=== PATIENT | male | born 1955 | race Caucasian/White ===

== ENCOUNTER → 2017-03-28 | Outpatient (CLI) | payer BC ==
[~2017-03-28] MED LIST: ALL180 PO; ASCA500 PO; BNC/20125 PO; CEPH500C PO; CLB200 PO; FLX10 PO; GLUCOSAMINE PO; META1TAB22 PO; MULT-506 PO; OXYC-57 PO
== END | disposition home or self-care (01) ==
LOC: C.LAB 07:46
PROVIDERS: ATTEND Urology
DX: R97.20 Elevated prostate specific antigen [PSA] (principal)

== ENCOUNTER → 2017-04-28 | Outpatient (CLI) | payer BC ==
[2017-04-28 10:09] LABS: BLOOD UREA NITROGEN 12 mg/dl (7-18); BUN/CREATININE RATIO 12.8 (10-20); CREATININE 0.94 mg/dl (0.60-1.40)
== END | disposition home or self-care (01) ==
LOC: C.LAB 08:01
PROVIDERS: ATTEND Urology
DX: R97.20 Elevated prostate specific antigen [PSA] (principal)

== ENCOUNTER → 2017-05-09 | Outpatient (CLI) | payer BC ==
[~2017-05-09] MED LIST changes: +GADAVIST IV PRN
--- NOTE | 2017-05-09 11:03 | DIAGNOSTIC IMAGING REPORT ---
BONY ORBITS 3 VIEWS CLINICAL HISTORY: MRI clearance. FINDINGS: 3 views of the bony orbits are obtained. No prior studies are available for comparison at the time of dictation. There is no radiodense/metallic foreign body seen in the region of the bony orbits. The bony orbits are intact as imaged. The visualized paranasal sinuses and the mastoid air cells appear clear. The imaged calvarium appears intact. IMPRESSION: There is no radiodense/metallic foreign body seen in the region of the bony orbits. Electronically signed by: Rodolfo Yates M.D. 05/09/2017 11:02 AM Dictated Date/Time: 05/09/2017 11:01 AM
--- NOTE | 2017-05-09 13:46 | DIAGNOSTIC IMAGING REPORT ---
PROSTATE MRI COMBO CLINICAL HISTORY: 62-year-old male with elevated PSA of 4.72. TECHNIQUE: Multisequence, multiplanar MR imaging of the prostate was performed before and after the administration of intravenous contrast. Additional postprocessing was performed on a separate [id number] workstation by the radiologist for 3-D volumetric segmentation of the prostate and contouring of region(s) of interest (ABBIE) for targeting. Injection of 10 cc of Gadavist IV was uneventful. Post contrast imaging was performed utilizing dynamic enhancement. COMPARISON: None. FINDINGS: Prostate: The prostate measures 5.4 x 5.1 x 6.6 cm cm (DynaCAD prostate boundary segmentation volume 88.32 mL). Moderate changes of benign prostatic hyperplasia. Precontrast T1 weighted imaging demonstrates no evidence of intrinsic T1 hyperintensity to suggest hemorrhage. Seminal vesicles normal. Suspicious lesion(s) described below: Note is made of a 1.1 x 0.8 x 0.9 cm ill-defined T2 hypointense focus within the left posterior aspect of the transitional zone at the level of the prostate base. This demonstrates moderately diminished signal intensity on the ADC map with increased signal intensity on the diffusion-weighted sequence. This also demonstrates early enhancement with washout. No additional suspicious foci are identified within the prostate gland. No abnormalities are identified within the peripheral zone. Prostate indents the base of the bladder. Bladder: Normal. Bowel: Visualized portion of the rectum normal. Peritoneum: No free fluid in the pelvis. Lymph nodes: No lymphadenopathy in the visualized portion of the pelvis. Vasculature: Iliac vessels patent. Abdominal wall: Normal. Osseous structures: Normal bone marrow signal intensity. IMPRESSION: 1. 1.1 x 0.8 x 0.9 cm ill-defined T2 hypointense focus with restricted diffusion and diminished signal intensity on the ADC map within the left posterior aspect of the transitional zone at the level of the prostate base. This is suspicious for malignancy. PI-RADS: 4. Clinically significant cancer is likely to be present. This lesion has been segmented for targeted biopsy. 2. Marked benign prostatic hyperplasia. Electronically signed by: Conner Wilkins M.D. 05/09/2017 1:44 PM Dictated Date/Time: 05/09/2017 12:47 PM
== END | disposition home or self-care (01) ==
LOC: C.MRIBC 10:42
PROVIDERS: ATTEND Urology
DX: R97.20 Elevated prostate specific antigen [PSA] (principal)

== ENCOUNTER → 2017-06-27 | Outpatient (CLI) | payer OTHER ==
[~2017-06-27] MED LIST changes: -GADAVIST IV PRN
== END | disposition home or self-care (01) ==
LOC: C.LAB 07:50
PROVIDERS: ATTEND Urology
DX: R97.20 Elevated prostate specific antigen [PSA] (principal)

== ENCOUNTER → 2017-08-25 | Outpatient (CLI) | payer OTHER | END | disposition home or self-care (01) | LOC: C.LAB 07:19 | PROVIDERS: ATTEND Urology | DX: R97.20 Elevated prostate specific antigen [PSA] (principal) ==

== ENCOUNTER → 2017-09-10 | Outpatient (CLI) | payer OTHER | END | disposition home or self-care (01) | LOC: C.PATHSPEC 17:06 | PROVIDERS: ATTEND Urology | DX: R97.20 Elevated prostate specific antigen [PSA] (principal) ==

== ENCOUNTER 2018-06-29 12:32 | Inpatient (IN) ==
--- NOTE | 2018-06-29 13:48 | Emergency Department Note ---
History of Present Illness General Chief complaint: Calf Pain Stated complaint: L CALF SWOLLEN, DISCOLORATION, FEET COLD Time Seen by Provider: 06/29/18 13:25 History of Present Illness Maximum Pain Intensity: 5 This is a 63-year-old male that presents to the emergency department via private vehicle with complaints of "left calf swelling, discoloration, feet ". The patient notes that about 6 days ago he was out using his snowblower and notes that he slipped and fell striking the handle with the left anterior thigh. He notes that it became discolored, was black and blue in nature and then notes that he began with left calf edema, discoloration and pain. He also notes that he has been feeling fatigued and short of breath for the past 2.5 weeks. No chest pain. He is concerned because he is a smoker. He is also concerned he may have a blood clot in the left lower extremity. He denies any fevers or chills. He has been taking aspirin for the pain but it persists. Numerically he rates the pain in the left lower extremity as a 5/10. Home Medications Home Medications Medication Instructions Recorded Confirmed Type aspirin 0 mg PO QAM 06/29/18 06/29/18 History cyclobenzaprine 10 mg PO DAILY PRN 06/29/18 06/29/18 History naproxen 500 mg PO BID 06/29/18 06/29/18 History Allergies Allergy/AdvReac Type Severity Reaction Status Date / Time lisinopril Allergy Unknown Verified 06/29/18 15:07 Past Med/Surg History Medical History HTN (hypertension) Tobacco abuse Surgical History H/O vasectomy History of cataract surgery Hx of elbow surgery Hx of sinus surgery Hx of tonsillectomy Family History Other No significant family history Social History Current Living Situation: Spouse Other Information That Helps Us Care for You: No Feels Safe at Home: Yes Safety Concerns: Feels Safe At This Time Smoking Status: Current every day smoker Tobacco Type: cigarettes Cigarettes per Day: "It's none of their business" (thinks [employer] wants info) Do You Dip or Chew Tobacco: No Tobacco Cessation Education Requested by Patient: No Hx Alcohol Use: Yes Alcohol type: beer Hx Substance Use: No Beliefs That Will Affect Care: None Preferred Language: Citizen Of The [place] Communication Ability: Effective Retail Sales Teammate Required: No Review of Systems A total of 10 systems reviewed and were otherwise negative Physical Exam Vital Signs Vital Signs - 24 hr 06/29/18 12:41 06/29/18 13:50 06/29/18 14:01 Temperature 36.6 C Temperature Source Oral Sepsis Recent Fever Within 48 Hours No Sepsis New/Unexplained Change in Mental Status No Sepsis Action Taken by Nursing No Action Required Pulse Rate 103 H Pulse Rate [Left] 87 Pulse Rhythm Regular Pulse Rhythm [Left] Regular Pulse Strength [Left] Normal Respiratory Rate 18 18 Respiratory Effort / Characteristics Non-Labored Spontaneous Non-Labored Spontaneous Respiratory Depth Normal Respiratory Pattern Regular Blood Pressure 143/67 H Blood Pressure [Left Arm] 131/78 Blood Pressure Mean 92 Blood Pressure Mean [Left Arm] 95 Blood Pressure Position Sitting Blood Pressure Position [Left Arm] Lying Pulse Oximetry 99 94 Oxygen Delivery Method Room Air Room Air Room Air 06/29/18 16:30 06/29/18 16:56 Temperature Temperature Source Sepsis Recent Fever Within 48 Hours Sepsis New/Unexplained Change in Mental Status Sepsis Action Taken by Nursing Pulse Rate Pulse Rate [Left] 78 Pulse Rhythm Pulse Rhythm [Left] Regular Pulse Strength [Left] Normal Respiratory Rate 16 Respiratory Effort / Characteristics Non-Labored Spontaneous Non-Labored Respiratory Depth Normal Normal Respiratory Pattern Regular Regular Blood Pressure Blood Pressure [Left Arm] 132/79 Blood Pressure Mean Blood Pressure Mean [Left Arm] 96 Blood Pressure Position Blood Pressure Position [Left Arm] Lying Pulse Oximetry 95 Oxygen Delivery Method Room Air Room Air VITAL SIGNS - Vital signs and nursing notes were reviewed. Stable. Afebrile. Tachycardic upon arrival. GENERAL -63-year-old male appearing his stated age who is in no acute distress. Communicates well with provider and answers questions appropriately. SKIN -left calf is quite edematous compared to the right. Minimal pitting edema. Patient does have bruising noted to the anterior calf. No breaks in the integument. No bruising overlying the left thigh. HEAD - NC/AT. EYES - PERRL with EOMI bilaterally. Sclera anicteric. Palpebral conjunctiva pink and moist with no injection noted. EARS - No deformities of external structures noted on gross examination bilaterally. NOSE - Midline and without cyanosis. No epistaxis or purulent drainage noted. Septum midline without deviation or septal hematoma noted. MOUTH/OROPHARYNX - Without perioral cyanosis. Buccal mucosa pink and moist and without leukoplakia. Tongue midline with equal elevation of palate bilaterally. No tonsillar hypertrophy, erythema, or exudates noted. Fair dentition noted. NECK - Neck with FROM. Supple to palpation. No lymphadenopathy noted. No nuchal rigidity. LUNGS - Chest wall symmetric without accessory muscle use, intercostals retractions, or central cyanosis. Normal vesicular breath sounds CTA B/L. No wheezes, rales, or rhonchi appreciated. CARDIAC - RRR with S1/S2. No murmur, rubs, or gallops appreciated. ABDOMEN - Abdominal contour normal without pulsations or visible masses. BS normoactive all four quadrants. No tenderness, palpable masses, hepatosplenomegaly, or ascites noted. EXTREMITIES - No clubbing or peripheral cyanosis. No pretibial edema present. +5 /5 strength noted in UE/LE bilaterally. There is tenderness to palpation overlying the patient's left calf. He is able to plantarflex and dorsiflex at the location of the left foot/ankle. There is no evidence of arterial compromise noting within normal limit pulses in the left lower extremity. Comparatively, the left lower extremity is more edematous than the right. NEUROLOGIC - Cranial nerves II through XII grossly intact. Sensory intact to light touch throughout. PSYCH - A&Ox3 and cooperates fully with examiner. Pt is very pleasant and interacts well with examiner. Course Administered Medications Ioversol (Optiray 320 125ml) 108 ml IV ONCE PRN PRN Reason: Interaction Checking Stop: 07/03/18 15:23 Last Admin: 06/29/18 15:24 Dose: 108 ml Discontinued Medications Heparin Sodium (Porcine) (Heparin Sodium (Porcine)) Confirm Administered Dose 10 ,000 units .ROUTE .STK-MED ONE Stop: 06/29/18 16:00 Last Admin: 06/29/18 16:52 Dose: 6,000 units Heparin Sodium/Dextrose () 1 ea IV NOW STA; Protocol Stop: 06/29/18 15:46 Last Admin: 06/29/18 16:53 Dose: Not Given Heparin Sodium/Dextrose (Heparin Sodium/Dextrose) Confirm Administered Dose 25, 000 units IV .STK-MED ONE Stop: 06/29/18 15:59 Last Admin: 06/29/18 16:52 Dose: 32 ml Medical Decision Making Laboratory Data Result diagrams: 06/29/18 13:50 06/29/18 13:50 Lab Results 06/29/18 06/29/18 06/29/18 Range/Units 13:50 13:50 13:50 WBC 12.24 H (4.8-10.8) K/uL RBC 4.88 (4.7-6.1) M/uL Hgb 15.5 (14.0-18.0) g/dL Hct 44.4 (42-52) % MCV 91.0 (80-100) fL MCH 31.8 (25-34) pg MCHC 34.9 (32-36) g/dL RDW Std Deviation 41.0 (36.4-46.3) fL RDW Coeff of Rosanne 12.2 (11.5-14.5) % Plt Count 370 (130-400) K/uL MPV 10.1 (7.4-10.4) fL Immature Gran % (Auto) 0.6 % Neut % (Auto) 71.3 % Lymph % (Auto) 18.5 % Kent % (Auto) 6.5 % Eos % (Auto) 2.5 % Baso % (Auto) 0.6 % Immature Gran # (Auto) 0.07 H (0.00-0.02) K/uL Neut # (Auto) 8.74 H (1.4-6.5) K/uL Lymph # (Auto) 2.26 (1.2-3.4) K/uL Kent # (Auto) 0.79 H (0.11-0.59) K/uL Eos # (Auto) 0.31 (0-0.5) K/uL Baso # (Auto) 0.07 (0-0.2) K/uL PT 11.3 (9.0-12.0) Seconds INR 1.1 (0.9-1.1) APTT 25.4 (21.0-31.0) Seconds PTT Ratio 1.0 Sodium 137 (136-145) mmol/L Potassium 3.8 (3.5-5.1) mmol/L Chloride 103 (98-107) mmol/L Carbon Dioxide 27 (21-32) mmol/L Anion Gap 7.0 (3-11) BUN 13 (7-18) mg/dl Creatinine 0.92 (0.6-1.4) mg/dl Est Cr Clr Drug Dosing 101.0 ml/min Est GFR ( Amer) 101.5 Est GFR (Non-Af Amer) 87.6 BUN/Creatinine Ratio 14.2 (10-20) Glucose 97 (70-99) mg/dl Calcium 9.1 (8.5-10.1) mg/dl Total Bilirubin 0.5 (0.2-1) mg/dl AST 24 (15-37) U/L ALT 70 (12-78) U/L Alkaline Phosphatase 95 (45-117) U/L Troponin I < 0.015 (0-0.045) ng/ml Total Protein 7.7 (6.4-8.2) gm/dl Albumin 3.4 (3.4-5.0) gm/dl Globulin 4.3 H (2.5-4.0) gm/dl Albumin/Globulin Ratio 0.8 L (0.9-2) Urine Color Urine Appearance (Clear) Urine pH (4.5-7.5) Ur Specific Ryan (1.000-1.030) Urine Protein (Negative) Urine Glucose (UA) (Negative) Urine Ketones (Negative) Urine Blood (Negative) Urine Nitrite (Negative) Urine Bilirubin (Negative) Urine Urobilinogen (Negative) Ur Leukocyte Esterase (Negative) Urine WBC (Auto) (0-5) /hpf Urine RBC (Auto) (0-4) /hpf U Hyaline Cast (Auto) (0-5) /lpf U Epithel Cells (Auto) (0-5) /lpf Urine Bacteria (Auto) (Negative) 06/29/18 Range/Units 15:05 WBC (4.8-10.8) K/uL RBC (4.7-6.1) M/uL Hgb (14.0-18.0) g/dL Hct (42-52) % MCV (80-100) fL MCH (25-34) pg MCHC (32-36) g/dL RDW Std Deviation (36.4-46.3) fL RDW Coeff of Rosanne (11.5-14.5) % Plt Count (130-400) K/uL MPV (7.4-10.4) fL Immature Gran % (Auto) % Neut % (Auto) % Lymph % (Auto) % Kent % (Auto) % Eos % (Auto) % Baso % (Auto) % Immature Gran # (Auto) (0.00-0.02) K/uL Neut # (Auto) (1.4-6.5) K/uL Lymph # (Auto) (1.2-3.4) K/uL Kent # (Auto) (0.11-0.59) K/uL Eos # (Auto) (0-0.5) K/uL Baso # (Auto) (0-0.2) K/uL PT (9.0-12.0) Seconds INR (0.9-1.1) APTT (21.0-31.0) Seconds PTT Ratio Sodium (136-145) mmol/L Potassium (3.5-5.1) mmol/L Chloride (98-107) mmol/L Carbon Dioxide (21-32) mmol/L Anion Gap (3-11) BUN (7-18) mg/dl Creatinine (0.6-1.4) mg/dl Est Cr Clr Drug Dosing ml/min Est GFR ( Amer) Est GFR (Non-Af Amer) BUN/Creatinine Ratio (10-20) Glucose (70-99) mg/dl Calcium (8.5-10.1) mg/dl Total Bilirubin (0.2-1) mg/dl AST (15-37) U/L ALT (12-78) U/L Alkaline Phosphatase (45-117) U/L Troponin I (0-0.045) ng/ml Total Protein (6.4-8.2) gm/dl Albumin (3.4-5.0) gm/dl Globulin (2.5-4.0) gm/dl Albumin/Globulin Ratio (0.9-2) Urine Color Dark Yellow Urine Appearance Clear (Clear) Urine pH 5.5 (4.5-7.5) Ur Specific Ryan 1.029 (1.000-1.030) Urine Protein Negative (Negative) Urine Glucose (UA) Negative (Negative) Urine Ketones Trace H (Negative) Urine Blood Trace H (Negative) Urine Nitrite Negative (Negative) Urine Bilirubin Negative (Negative) Urine Urobilinogen Negative (Negative) Ur Leukocyte Esterase Negative (Negative) Urine WBC (Auto) 1-5 (0-5) /hpf Urine RBC (Auto) 10-30 H (0-4) /hpf U Hyaline Cast (Auto) 1-5 (0-5) /lpf U Epithel Cells (Auto) 0-5 (0-5) /lpf Urine Bacteria (Auto) Negative (Negative) Imaging Data Radiologist's Impression: LEFT LOWER EXTREMITY VENOUS DOPPLER HISTORY: L calf edema, pain COMPARISON STUDY: None. FINDINGS: The left common femoral vein and proximal superficial femoral vein are patent. There is occlusive thrombus involving the mid to distal left superficial femoral vein, popliteal vein, and calf vessels. IMPRESSION: Occlusive left lower extremity DVT as described above. Electronically signed by: Curt Hernández M.D. 06/29/2018 2:[address] angio chest PE protocol CT DOSE: 485.95 mGy.cm HISTORY: 63 years-old Male with Large DVT, dyspnea. Acute shortness of breath with DVT TECHNIQUE: Multiple CTA images of the chest were obtained after the intravenous administration of 108 ml Optiray 320. Coronal and sagittal MIPS were obtained from the axial data set and were submitted for review. All measurements were obtained according to NASCET criteria. A dose lowering technique was utilized adhering to the principles of ALARA. COMPARISON: Duplex venous Doppler study of same day. FINDINGS: CTA: Heart is normal in size without pericardial effusion. Thoracic aorta is normal in course and caliber with mild to moderate mixed plaque formation. No thoracic aortic aneurysm or dissection. Patency of the imaged great vessels. The pulmonary arterial tree is opacified to the level of the subsegmental branches. Multiple filling defects are noted involving segmental and subsegmental branches of all lobes bilaterally no evidence of associated right heart strain or central pulmonary emboli. CT CHEST: No dominant thyroid nodule. Mildly prominent right hilar and subcarinal lymph nodes are likely on a reactive basis. No pneumothorax or pleural effusion. Severe emphysema. Mild bilateral bronchial wall thickening suggestive of bronchitis. 9 mm nodule about the left lung base on image 162 series 4 abutting the fissure suggests a fissural lymph node. 5 mm solid nodule of the left lower lobe as seen on image 142 series 4. 3 mm solid nodule of the left lower lobe on image 94 series 4. Mild dependent subsegmental bibasilar atelectasis. 5 mm solid nodule of the right upper lung on image 211 series 4 suggests additional fissural lymph node. There is an indeterminate 6 mm solid nodule of the apical segment right upper lobe on image 248 series 4. Central airways appear to be patent. Contracted gallbladder. No acute process of the imaged upper abdomen. Soft tissues are unremarkable. The bones appear to be intact. Degenerative changes of the shoulders and spine. No suspicious bone lesions. IMPRESSION: 1. Extensive bilateral pulmonary emboli noted involving segment of the subsegmental branches of all lobes bilaterally. No central pulmonary emboli or evidence of right heart strain. 2. Severe emphysema. 3. Scattered solid pulmonary nodules of the bilateral lungs measure up to 6 mm within the right lung apex. Bilateral fissural lymph nodes are also present as above. Please refer to below summary of Fleischner criteria recommendations for follow- up of incidental CT nodules (Kwabena Aguilera, Guidelines for management of small pulmonary nodules detected on CT scans: A statement from the Fleischner Society , Radiology 237: [phone].) SOLID NODULES Multiple nodules size: <6 mm * Low risk patients: no routine follow-up * high risk patients: optional CT at 12 months Multiple nodules size: 6-8 mm * Low risk patients: follow-up at 3-6 months, then consider further follow-up at 18-24 months * high risk patients: follow-up at 3-6 months, then at 18-24 months if no change Multiple nodules size: >8 mm * Low risk patients: follow-up at 3-6 months, then consider further follow-up at 18-24 months * high risk patients: follow-up at 3-6 months, then at 18-24 months if no change Note: newly detected indeterminate nodule in persons 35 years of age or older. * Low risk patients: minimal or absent history of smoking and/or other known risk factors * high risk patients: history of smoking or of other known risk factors (e.g. first degree relative with lung cancer, or exposure to asbestos, radon, uranium) * if a nodule up to 8 mm is partly solid or is ground glass further follow-up is required after 24 months to exclude possible slow growing adenocarcinoma (BRYON ) The above report was generated using voice recognition software. It may contain grammatical, syntax or spelling errors. . Electronically signed by: John Velazco M.D. 06/29/2018 3:40 PM MDM Narrative Patient was seen and evaluated as above in room A2. Review was performed of nursing notes and vital signs. After obtaining a thorough history and physical examination the above work up was performed. He presents to us today with fatigue, and left lower extremity edema. He is nontoxic on exam but is slightly tachycardic. EKG at bedside reveals normal sinus rhythm, complete right bundle branch block noted. There is T wave inversion noted in leads III, V1. Ultrasound was positive for DVT. CT of the chest obtained and is positive for bilateral pulmonary emboli. Labs were obtained. CBC reveals leukocytosis of 12.24. No significant anemia. Coags normal. No evidence of kidney or liver failure. Troponin is negative. Urinalysis does not reveal infection. Given the patient's presentation and findings do believe that heparinization is warranted. This was discussed with the attending physician. It was recommended to provide him 6000 units bolus of heparin with drip. This was ordered. Prior to administration hyper coag panel was also drawn. Patient will be admitted for further evaluation and management. I discussed these findings and concern with the hospitalist. Please refer to further documentation regarding his stay. Case was discussed with the attending physician. IMPRESSION: Chest Pain In the evaluation and treatment of this patient, the following differential diagnoses were considered: NH, ASC, DVT, compartment syndrome, dysrhythmia, Angina, Mediastinitis, GERD, Esophagitis, PE, Pneumonia, Bronchitis, Costochondritis, Rib Fracture, Zoster, among others Impression & Plan Deep vein thrombosis of lower extremity, Pulmonary embolism, bilateral Critical Care Time I have personally spent greater than 60 minutes of critical care time in the direct management of this patient. This includes bedside care, interpretation of diagnostic studies, and testing, discussion with consultants, patient, , and other required patient management activities. This 60 minutes is in excess of all separately billable procedures. Discharge Plan Visit Data Chief Complaint: Calf Pain Stated Complaint: L CALF SWOLLEN, DISCOLORATION, FEET COLD ED Provider: Dererll Felix ED Midlevel Provider: Peyman Ardon Discharge Problem: Deep vein thrombosis of lower extremity, Pulmonary embolism, bilateral Patient Disposition: Admitted As Inpatient Condition: Good Forms Stand Alone Forms: My [facility] Prescriptions Prescriptions: No Action cyclobenzaprine 10 mg tablet 10 mg PO DAILY PRN (Reason: Muscle Spasm) RF: 0 aspirin 81 mg Tablet,Delayed Release (Dr/Ec) PO QAM RF: 0 naproxen 500 mg Tablet 500 mg PO BID RF: 0 Referrals Referrals: Charles Lua Jr, DO [Primary Care Provider] -
[2018-06-29 14:04] LABS: Basophils # (auto) 0.07 K/uL (0-0.2); Basophils % (auto) 0.6 %; Eosinophils # (auto) 0.31 K/uL (0-0.5); Eosinophils % (auto) 2.5 %; Hematocrit (blood only) 44.4 % (42-52); Hemoglobin 15.5 g/dL (14.0-18.0); Immature Granulocytes # (auto) 0.07 K/uL (0.00-0.02); Immature Granulocytes % (auto) 0.6 %; Lymphocytes # (auto) 2.26 K/uL (1.2-3.4); Lymphocytes % (auto) 18.5 %; Mean Corpuscular Hgb Conc 34.9 g/dL (32-36); Mean Platelet Volume 10.1 fL (7.4-10.4); Monocytes # (auto) 0.79 K/uL (0.11-0.59); Monocytes % (auto) 6.5 %; Neutrophils # (auto) 8.74 K/uL (1.4-6.5); Neutrophils % (auto) 71.3 %; Platelet Count 370 K/uL (130-400); RDW Coefficient of Variation 12.2 % (11.5-14.5); Red Blood Count 4.88 M/uL (4.7-6.1); White Blood Count 12.24 K/uL (4.8-10.8)
[2018-06-29 14:20] LABS: Alanine Aminotransferase 70 U/L (12-78); Albumin Level 3.4 gm/dl (3.4-5.0); Aspartate Aminotransferase 24 U/L (15-37); BUN Creatinine Ratio 14.2 (10-20); Blood Urea Nitrogen 13 mg/dl (7-18); Calcium 9.1 mg/dl (8.5-10.1); Carbon Dioxide 27 mmol/L (21-32); Chloride 103 mmol/L (98-107); Est GFR (African American) 101.5; Est GFR (Non-African American) 87.6; Glucose 97 mg/dl (70-99); Potassium 3.8 mmol/L (3.5-5.1); Sodium 137 mmol/L (136-145)
[2018-06-29 14:25] LABS: Albumin Globulin Ratio 0.8 (0.9-2); Alkaline Phosphatase 95 U/L (45-117); Bilirubin,Total 0.5 mg/dl (0.2-1); Globulin 4.3 gm/dl (2.5-4.0); Total Protein 7.7 gm/dl (6.4-8.2); Troponin I < 0.015 ng/ml (0-0.045)
[2018-06-29 14:26] LABS: INR 1.1 (0.9-1.1); Partial Thromboplastin Time 25.4 Seconds (21.0-31.0); Prothrombin Time 11.3 Seconds (9.0-12.0)
--- NOTE | 2018-06-29 14:51 | Ultrasound Report ---
LEFT LOWER EXTREMITY VENOUS DOPPLER HISTORY: L calf edema, pain COMPARISON STUDY: None. FINDINGS: The left common femoral vein and proximal superficial femoral vein are patent. There is occ lusive thrombus involving the mid to distal left superficial femoral vein, popliteal vein, and calf v essels. IMPRESSION: Occlusive left lower extremity DVT as described above. Electronically signed by: Curt Hernández M.D. 06/29/2018 2:49 PM
[2018-06-29 15:21] LABS: Appearance Urine Clear (Clear); Bacteria Urine Automated Negative (Negative); Bilirubin Urine Negative (Negative); Color Urine Dark Yellow; Epithelial Cell Urine Auto 0-5 /lpf (0-5); Glucose Urine UA Negative (Negative); Ketones Urine Trace (Negative); Leukocyte Esterase Urine Negative (Negative); Nitrite Urine Negative (Negative); Protein Urine Negative (Negative); Specific Gravity Urine 1.029 (1.000-1.030); Urobilinogen Urine Negative (Negative); pH Urine 5.5 (4.5-7.5)
[2018-06-29] MEDS ORDERED: OPTIRAY 320 125ml IV PRN (15:24)
--- NOTE | 2018-06-29 15:41 | CT Scan Report ---
CT angio chest PE protocol CT DOSE: 485.95 mGy.cm HISTORY: 63 years-old Male with Large DVT, dyspnea. Acute shortness of breath with DVT TECHNIQUE: Multiple CTA images of the chest were obtained after the intravenous administration of 108 ml Optiray 320. Coronal and sagittal MIPS were obtained from the axial data set and were submitted for review. All measurements were obtained according to NASCET criteria. A dose lowering technique w as utilized adhering to the principles of ALARA. COMPARISON: Duplex venous Doppler study of same day. FINDINGS: CTA: Heart is normal in size without pericardial effusion. Thoracic aorta is normal in course and caliber with mild to moderate mixed plaque formation. No thoracic aortic aneurysm or dissection. Patency of t he imaged great vessels. The pulmonary arterial tree is opacified to the level of the subsegmental br anches. Multiple filling defects are noted involving segmental and subsegmental branches of all lobes bilaterally no evidence of associated right heart strain or central pulmonary emboli. CT CHEST: No dominant thyroid nodule. Mildly prominent right hilar and subcarinal lymph nodes are likely on a r eactive basis. No pneumothorax or pleural effusion. Severe emphysema. Mild bilateral bronchial wall thickening sugge stive of bronchitis. 9 mm nodule about the left lung base on image 162 series 4 abutting the fissure suggests a fissural lymph node. 5 mm solid nodule of the left lower lobe as seen on image 142 series 4. 3 mm solid nodule of the left lower lobe on image 94 series 4. Mild dependent subsegmental bibasil ar atelectasis. 5 mm solid nodule of the right upper lung on image 211 series 4 suggests additional f issural lymph node. There is an indeterminate 6 mm solid nodule of the apical segment right upper lob e on image 248 series 4. Central airways appear to be patent. Contracted gallbladder. No acute process of the imaged upper abdomen. Soft tissues are unremarkable. The bones appear to be intact. Degenerative changes of the shoulders and spine. No suspicious bone le sions. IMPRESSION: 1. Extensive bilateral pulmonary emboli noted involving segment of the subsegmental branches of all l obes bilaterally. No central pulmonary emboli or evidence of right heart strain. 2. Severe emphysema. 3. Scattered solid pulmonary nodules of the bilateral lungs measure up to 6 mm within the right lung apex. Bilateral fissural lymph nodes are also present as above. Please refer to below summary of Fleischner criteria recommendations for follow-up of incidental CT n odules (Kwabena Aguilera, Guidelines for management of small pulmonary nodules detected on CT scans: A sta tement from the Fleischner Society, Radiology 237: [id number].) SOLID NODULES Multiple nodules size: <6 mm * Low risk patients: no routine follow-up * high risk patients: optional CT at 12 months Multiple nodules size: 6-8 mm * Low risk patients: follow-up at 3-6 months, then consider further follow-up at 18-24 months * high risk patients: follow-up at 3-6 months, then at 18-24 months if no change Multiple nodules size: >8 mm * Low risk patients: follow-up at 3-6 months, then consider further follow-up at 18-24 months * high risk patients: follow-up at 3-6 months, then at 18-24 months if no change Note: newly detected indeterminate nodule in persons 35 years of age or older. * Low risk patients: minimal or absent history of smoking and/or other known risk factors * high risk patients: history of smoking or of other known risk factors (e.g. first degree relative with lung cancer, or exposure to asbestos, radon, uranium) * if a nodule up to 8 mm is partly solid or is ground glass further follow-up is required after 24 m onths to exclude possible slow growing adenocarcinoma (BRYON) The above report was generated using voice recognition software. It may contain grammatical, syntax o r spelling errors. . Electronically signed by: John Velazco M.D. 06/29/2018 3:40 PM
[2018-06-29] MEDS ORDERED: HEPARIN 25000 UNIT/500 ML D5W IV ONE (15:58)
[2018-06-29] MEDS ORDERED: HEPARIN SOD 5,000 UNIT/0.5 ML VIAL ONE (15:59)
--- NOTE | 2018-06-29 17:18 | History & Physical Report ---
Date of Service June 29, 2018 Assessment & Plan (1) Deep vein thrombosis of lower extremity: left leg is tense and warm, started a few days ago never had this before doppler shows left leg DVT, occlusive only obvious risk factor is smoking no recent surgery or immobilization, very active [place] did admit to viral illness two weeks ago that made him less active? no family history of VTE treat with heparin drip, look into cost of Xarelto which patient would prefer over Coumadin hypercoagulable work up sent out (2) Pulmonary embolism, bilateral: patient has dyspnea on exertion and some mild tachycardia has a cough, non-productive CTA shows bilateral PE not hypoxic, vitals are stable treat with heparin drip convert to Xarelto tomorrow if vitals are stable and no hypoxia, could probably go home tomorrow afternoon on Xarelto check hypercoagulable work up since there are no clear risk factors this would be follow up lab work, drawn in the ED (3) Tobacco abuse: discussed quiting smoking, smokes about 1/2 ppd, more if he is drinking he is not interested in quitting at this time follow up with PCP (4) Dyspnea: due to PE, should resolve over time with treatment History of Present Illness Chief Complaint: I've lost my get up and go, feel terrible Primary Care Provider: Charles Lua Jr, DO 63 yo male with limited medical history, presents with acute onset of left leg swelling and pain three days ago. He said that he was using his snowblower almost a week ago and the handle hit him hard in the left thigh, gave him a big bruise. Says he normally does not bruise easily. After two days he noticed the bruise was improving but his left lower leg was swollen and warm and red. No history of this. The leg was painful as well. In addition to the leg symptoms, he had noticed that he was more short of breath on exertion. Says he always has a little shortness of breath due to his smoking. In hindsight, he says that he has been more short of breath the past two weeks. He thinks that maybe the DVT started earlier than a few days ago and that he has been slowly throwing pulmonary emboli. 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 He says that he had a viral illness two weeks ago, had fever and chills and generalized aches everywhere. Was not able to do much so perhaps that lead to the DVT. In the ED the venous doppler showed left leg DVT, occlussive. CTA chest shows bilateral PE. Allergies Allergy/AdvReac Type Severity Reaction Status Date / Time lisinopril Allergy Unknown Verified 06/29/18 15:07 Home Medications Home Medications Medication Instructions Recorded Confirmed Type aspirin 0 mg PO QAM 06/29/18 06/29/18 History cyclobenzaprine 10 mg PO DAILY PRN 06/29/18 06/29/18 History naproxen 500 mg PO BID 06/29/18 06/29/18 History Past Med/Surg History Medical History HTN (hypertension) Tobacco abuse Surgical History No pertinent past surgical history Family History Other No significant family history Social History Current Living Situation: Spouse Other Information That Helps Us Care for You: No Feels Safe at Home: Yes Safety Concerns: Feels Safe At This Time Smoking Status: Current every day smoker Tobacco Type: cigarettes Cigarettes per Day: "It's none of their business" (thinks [employer] wants info) Do You Dip or Chew Tobacco: No Tobacco Cessation Education Requested by Patient: No Hx Alcohol Use: Yes Alcohol type: beer Hx Substance Use: No Beliefs That Will Affect Care: None Preferred Language: Kazakh Communication Ability: Effective Stonemason Supervisor Required: No Review of Systems All systems reviewed & are unremarkable except as noted in HPI & below Physical Exam 2 Vital Signs (Past 24 Hours): Last Vital Signs Temp 36.6 C 06/29/18 12:41 Pulse 78 06/29/18 16:56 Resp 16 06/29/18 16:56 BP 132/79 06/29/18 16:56 Pulse Ox 95 06/29/18 16:56 Constitutional: WD/WN, vitals as above Eyes: PERRL, conjunctivae normal, anicteric sclerae ENMT: external ear and nose normal, oropharynx normal Neck: trachea midline, no thyromegaly Respiratory: normal respiratory effort, lungs clear to auscultation Cardiovascular: RRR, no murmur, no edema Gastrointestinal (Abdomen): normal bowel sounds, soft, nontender, no hepatosplenomegaly Musculoskeletal: no cyanosis or clubbing, extremities motor strength 5/5 Skin: no rashes, warm and dry Neurologic: patellar DTR's 2+ bilat, sensation intact and PERRL, EOMI, accommodation nl, no face palsy, no dysarthria Psychiatric: A+Ox3, euthymic affect Lymphatic: no cervical or axillary lymphadenopathy Results & Data Laboratory Results Laboratory Results - last 24 hr 06/29/18 06/29/18 06/29/18 13:50 13:50 13:50 WBC 12.24 H RBC 4.88 Hgb 15.5 Hct 44.4 MCV 91.0 MCH 31.8 MCHC 34.9 RDW Std Deviation 41.0 RDW Coeff of Rosanne 12.2 Plt Count 370 MPV 10.1 Immature Gran % (Auto) 0.6 Neut % (Auto) 71.3 Lymph % (Auto) 18.5 [place] % (Auto) 6.5 Eos % (Auto) 2.5 Baso % (Auto) 0.6 Immature Gran # (Auto) 0.07 H Neut # (Auto) 8.74 H Lymph # (Auto) 2.26 [place] # (Auto) 0.79 H Eos # (Auto) 0.31 Baso # (Auto) 0.07 PT 11.3 INR 1.1 APTT 25.4 PTT Ratio 1.0 Sodium 137 Potassium 3.8 Chloride 103 Carbon Dioxide 27 Anion Gap 7.0 BUN 13 Creatinine 0.92 Est Cr Clr Drug Dosing 101.0 Est GFR ( Amer) 101.5 Est GFR (Non-Af Amer) 87.6 BUN/Creatinine Ratio 14.2 Glucose 97 Calcium 9.1 Total Bilirubin 0.5 AST 24 ALT 70 Alkaline Phosphatase 95 Troponin I < 0.015 Total Protein 7.7 Albumin 3.4 Globulin 4.3 H Albumin/Globulin Ratio 0.8 L Urine Color Urine Appearance Urine pH Ur Specific [place] Urine Protein Urine Glucose (UA) Urine Ketones Urine Blood Urine Nitrite Urine Bilirubin Urine Urobilinogen Ur Leukocyte Esterase Urine WBC (Auto) Urine RBC (Auto) U Hyaline Cast (Auto) U Epithel Cells (Auto) Urine Bacteria (Auto) 06/29/18 15:05 WBC RBC Hgb Hct MCV MCH MCHC RDW Std Deviation RDW Coeff of Rosanne Plt Count MPV Immature Gran % (Auto) Neut % (Auto) Lymph % (Auto) [place] % (Auto) Eos % (Auto) Baso % (Auto) Immature Gran # (Auto) Neut # (Auto) Lymph # (Auto) [place] # (Auto) Eos # (Auto) Baso # (Auto) PT INR APTT PTT Ratio Sodium Potassium Chloride Carbon Dioxide Anion Gap BUN Creatinine Est Cr Clr Drug Dosing Est GFR ( Amer) Est GFR (Non-Af Amer) BUN/Creatinine Ratio Glucose Calcium Total Bilirubin AST ALT Alkaline Phosphatase Troponin I Total Protein Albumin Globulin Albumin/Globulin Ratio Urine Color Dark Yellow Urine Appearance Clear Urine pH 5.5 Ur Specific [place] 1.029 Urine Protein Negative Urine Glucose (UA) Negative Urine Ketones Trace H Urine Blood Trace H Urine Nitrite Negative Urine Bilirubin Negative Urine Urobilinogen Negative Ur Leukocyte Esterase Negative Urine WBC (Auto) 1-5 Urine RBC (Auto) 10-30 H U Hyaline Cast (Auto) 1-5 U Epithel Cells (Auto) 0-5 Urine Bacteria (Auto) Negative Diagnostic Findings CTA chest IMPRESSION: 1. Extensive bilateral pulmonary emboli noted involving segment of the subsegmental branches of all lobes bilaterally. No central pulmonary emboli or evidence of right heart strain. 2. Severe emphysema. 3. Scattered solid pulmonary nodules of the bilateral lungs measure up to 6 mm within the right lung apex. Bilateral fissural lymph nodes are also present as above. LEFT LOWER EXTREMITY VENOUS DOPPLER HISTORY: L calf edema, pain COMPARISON STUDY: None. FINDINGS: The left common femoral vein and proximal superficial femoral vein are patent. There is occlusive thrombus involving the mid to distal left superficial femoral vein, popliteal vein, and calf vessels. IMPRESSION: Occlusive left lower extremity DVT as described above. Medications Administered Current Inpatient Medications Ioversol (Optiray 320 125ml) 108 ml IV ONCE PRN PRN Reason: Interaction Checking Stop: 07/03/18 15:23 Last Admin: 06/29/18 15:24 Dose: 108 ml Code Status & VTE Plan Code Status full code VTE Prophylaxis Plan VTE Prophylaxis will be ordered: Yes _ (1) Deep vein thrombosis of lower extremity Affected thrombotic vein of extremity: Chronicity: Laterality:
[2018-06-29] MEDS ORDERED: CYCLOBENZAPRINE HCL 10 MG TAB PO PRN ×2 (18:22→18:31)
[2018-06-29] MEDS ORDERED: Heparin IV Standard *NO* Bolus IV ONE (18:22)
[2018-06-29] MEDS ORDERED: ONDANSETRON INJ 2 MG/ML 2 ML VIAL IV PRN ×2 (18:22→18:31)
[2018-06-29] MEDS ORDERED: POLYETHYLENE (MIRALAX) 17 GM PACK PO PRN ×2 (18:22→18:31)
[2018-06-29] MEDS ORDERED: ACETAMINOPHEN 325 MG TAB PO PRN ×2 (18:22→18:31)
[2018-06-29] MEDS ORDERED: Heparin IV Standard *NO* Bolus IV SCH (19:50)
[2018-06-29] MEDS ORDERED: HEPARIN STANDARD DEXTROSE 25,000 UNITS/500 ML IV SCH (22:20)
[2018-06-29 23:05] LABS: Partial Thromboplastin Ratio 1.5; Partial Thromboplastin Time 38.5 Seconds (21.0-31.0)
[2018-06-30] MEDS ORDERED: HEPARIN IV BOLUS 7,000 UNITS in SYRINGE 0 ML IV ONE (00:15)
[2018-06-30 06:56] LABS: Partial Thromboplastin Ratio 2.7
[2018-06-30 07:01] LABS: Partial Thromboplastin Time 69.6 Seconds (21.0-31.0)
[2018-06-30] MEDS ORDERED: ASPIRIN 81 MG ECTAB PO SCH ×2 (09:00)
[2018-06-30] MEDS ORDERED: RIVAROXABAN 15 MG TAB PO SCH ×2 (09:00)
[2018-06-30 09:04] LABS: Hematocrit (blood only) 39.5 % (42-52); Hemoglobin 13.5 g/dL (14.0-18.0); Mean Corpuscular Hgb Conc 34.2 g/dL (32-36); Mean Corpuscular Volume 90.8 fL (80-100); Mean Platelet Volume 10.2 fL (7.4-10.4); Platelet Count 351 K/uL (130-400); RDW Coefficient of Variation 12.2 % (11.5-14.5); RDW Standard Deviation 40.8 fL (36.4-46.3); Red Blood Count 4.35 M/uL (4.7-6.1); White Blood Count 11.24 K/uL (4.8-10.8)
[2018-06-30] MEDS ORDERED: RIVAROXABAN 15 MG TAB PO ONE (12:03)
--- NOTE | 2018-06-30 19:24 | Discharge Summary ---
Date of Service June 30, 2018 Admission HPI Per Admitting Provider 63 yo male with limited medical history, presents with acute onset of left leg swelling and pain three days ago. He said that he was using his snowblower almost a week ago and the handle hit him hard in the left thigh, gave him a big bruise. Says he normally does not bruise easily. After two days he noticed the bruise was improving but his left lower leg was swollen and warm and red. No history of this. The leg was painful as well. In addition to the leg symptoms, he had noticed that he was more short of breath on exertion. Says he always has a little shortness of breath due to his smoking. In hindsight, he says that he has been more short of breath the past two weeks. He thinks that maybe the DVT started earlier than a few days ago and that he has been slowly throwing pulmonary emboli. 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 He says that he had a viral illness two weeks ago, had fever and chills and generalized aches everywhere. Was not able to do much so perhaps that lead to the DVT. In the ED the venous doppler showed left leg DVT, occlussive. CTA chest shows bilateral PE. Principal Diagnosis LLE DVT and B/L PE Discharge Exam Constitutional WD/WN, vitals as above Eyes + anicteric sclerae Neck trachea midline Respiratory normal respiratory effort, lungs clear to auscultation Cardiovascular RRR, no murmur, no edema Gastrointestinal (Abdomen) Inspection/Auscultation: normal bowel sounds Percussion/Palpation: abdomen soft; abdomen nontender Musculoskeletal some mild chronic venous stasis changes of b/l shins; maybe slightly edematous in L calf compared to R but minimal; no redness or warmth Skin no rashes, warm and dry Neurologic moves all extremities Psychiatric A+Ox3, euthymic affect Discharge Data Allergies Allergy/AdvReac Type Severity Reaction Status Date / Time lisinopril Allergy Unknown Verified 06/29/18 15:07 Consultations 06/29/18 15:45 ED Decision to Admit Stat 06/29/18 15:52 ED Decision to Admit Stat Ordered Studies CT angio chest PE protocol FINDINGS: CTA: Heart is normal in size without pericardial effusion. Thoracic aorta is normal in course and caliber with mild to moderate mixed plaque formation. No thoracic aortic aneurysm or dissection. Patency of the imaged great vessels. The pulmonary arterial tree is opacified to the level of the subsegmental branches. Multiple filling defects are noted involving segmental and subsegmental branches of all lobes bilaterally no evidence of associated right heart strain or central pulmonary emboli. CT CHEST: No dominant thyroid nodule. Mildly prominent right hilar and subcarinal lymph nodes are likely on a reactive basis. No pneumothorax or pleural effusion. Severe emphysema. Mild bilateral bronchial wall thickening suggestive of bronchitis. 9 mm nodule about the left lung base on image 162 series 4 abutting the fissure suggests a fissural lymph node. 5 mm solid nodule of the left lower lobe as seen on image 142 series 4. 3 mm solid nodule of the left lower lobe on image 94 series 4. Mild dependent subsegmental bibasilar atelectasis. 5 mm solid nodule of the right upper lung on image 211 series 4 suggests additional fissural lymph node. There is an indeterminate 6 mm solid nodule of the apical segment right upper lobe on image 248 series 4. Central airways appear to be patent. Contracted gallbladder. No acute process of the imaged upper abdomen. Soft tissues are unremarkable. The bones appear to be intact. Degenerative changes of the shoulders and spine. No suspicious bone lesions. IMPRESSION: 1. Extensive bilateral pulmonary emboli noted involving segment of the subsegmental branches of all lobes bilaterally. No central pulmonary emboli or evidence of right heart strain. 2. Severe emphysema. 3. Scattered solid pulmonary nodules of the bilateral lungs measure up to 6 mm within the right lung apex. Bilateral fissural lymph nodes are also present as above. Please refer to below summary of Fleischner criteria recommendations for follow- up of incidental CT nodules (Kwabena Aguilera, Guidelines for management of small pulmonary nodules detected on CT scans: A statement from the Fleischner Society , Radiology 237: [id number].) SOLID NODULES Multiple nodules size: <6 mm * Low risk patients: no routine follow-up * high risk patients: optional CT at 12 months Multiple nodules size: 6-8 mm * Low risk patients: follow-up at 3-6 months, then consider further follow-up at 18-24 months * high risk patients: follow-up at 3-6 months, then at 18-24 months if no change Multiple nodules size: >8 mm * Low risk patients: follow-up at 3-6 months, then consider further follow-up at 18-24 months * high risk patients: follow-up at 3-6 months, then at 18-24 months if no change Note: newly detected indeterminate nodule in persons 35 years of age or older. * Low risk patients: minimal or absent history of smoking and/or other known risk factors * high risk patients: history of smoking or of other known risk factors (e.g. first degree relative with lung cancer, or exposure to asbestos, radon, uranium) * if a nodule up to 8 mm is partly solid or is ground glass further follow-up is required after 24 months to exclude possible slow growing adenocarcinoma (BRYON ) LEFT LOWER EXTREMITY VENOUS DOPPLER FINDINGS: The left common femoral vein and proximal superficial femoral vein are patent. There is occlusive thrombus involving the mid to distal left superficial femoral vein, popliteal vein, and calf vessels. IMPRESSION: Occlusive left lower extremity DVT as described above. Hospital Course (1) Deep vein thrombosis of lower extremity: - LLE less tense and maybe just slightly edematous compared to RLE; pt reports the pain is improved but slightly sore - He does endorse frequent injuries from hunting/construction but more soft tissue type injuries so maybe contributing to cause of DVT? No clear cut etiology but he is a smoker - Hypercoagulable work-up is pending - Initially placed on heparin gtt and converted to Xarelto 15 mg BID x 21 days and Rx provided. Rx card given for co-pay coverage. Will need additional scripts for ongoing therapy - Its hard to say what the provoking cause was but if hypercoaguable work-up is negative could consider 3-6 months for duration of treatment - Did discuss to monitor for signs of bleeding as he does take a baby aspirin as well. Recommended using Tylenol if possible as he does intermittently use Naproxen for chronic pains (2) Pulmonary embolism, bilateral: - Reports mild RODRIGEZ but is an active smoker so some could be multifactorial - Appropriate oxygenation on RA and no chest pain or cardiac/respiratory compromise - Treatment as above (3) Tobacco abuse: - Continued to recommend cessation; smokes approx 1/2 ppd but more if he is drinking Total Time Total Time Spent Total Time Spent (In Minutes): Greater than 30 minutes Discharge Plan Discharge Items Patient Disposition: Home - Self-Care Reason For Visit: LEFT LEG DVT, PULMONARY EMBOLISM Discharge Diagnosis: Left Leg Blood Clot and Blood Clots in the Lungs Condition: Good Discharge Goals: Decrease discomfort, Increase independence and Prevent disease Activity: Resume your previous activity Non-emergency contact: Primary Care Provider Call non-emergency contact if: you have any medication questions, your pain is worsening and your temperature is above 101 Follow-up/Referrals: Charles Lua Jr, DO [Primary Care Provider] - 07/03/18 11:00 am (Please, follow up with Dr. Lua on FridayJuly 03 at 11:00 am. *If you need to change this appointment, call the office at [phone].) Diet: Regular Addtl Provider Instructions: Blood Clot in Leg and Blood Clot in Lungs: - This could have possibly been caused by your multiple injuries to your legs but its not completely clear as a cause to your blood clots. You did have some send out labs to check for some markers for being at risk for blood clots called a hypercoaguable work-up. These results will go to your family doctor. - You will be on Xarelto 15 mg twice a day for 21 days. Then you will only be on 20 mg daily. You may need to be on this for about 3-6 months pending your blood tests for clotting issues. Please discuss this with your family doctor as well. - Be mindful of increased bruising and bleeding while on a blood thinner. If you get a cut make sure to apply firm pressure for at least 5 minutes as your blood still clots but can take a little longer. If you can't get bleeding to stop please call 911 - You may resume your aspirin therapy but would recommend using Tylenol for pain control if able or only sporadic use of NSAIDs (advil, ibuprofen, motrin, naproxen) as these can cause increased bleeding risk - Recommend to be mindful that you can get winded or short of breath with exertion so take rests as needed and each day should be better. If you have increased shortness of breath or chest pain please call 911. It is uncommon but you can still get blood clots while on a blood thinner (again not common) Prescriptions: New rivaroxaban [Xarelto] 15 mg tablet 15 mg PO BID 21 Days Qty: 42 RF: 0 Continue cyclobenzaprine 10 mg tablet 10 mg PO DAILY PRN (Reason: Muscle Spasm) RF: 0 aspirin 81 mg Tablet,Delayed Release (Dr/Ec) PO QAM RF: 0 naproxen 500 mg Tablet 500 mg PO BID RF: 0 Stand-Alone Forms: [facility] Discharge Orders: Discharge Order (Routine); Ordered 06/30/18 Ordered By: Michelle Vargas Admission Data Admit Date/Time: 06/29/18 16:59 Attending Provider: Antoni Dove Admit Provider: Antoni Dove Primary Care Provider: Charles Lua Jr Other Providers: Antoni Dove Service: Medical Other Interventions: Discharge Summary Assessment (RN) Last Done: 06/30/18 13:25 Pending Studies at Discharge: Yes (Hypercoaguble work-up) DC Date/Time DO NOT enter until pt leaves facility: 06/30/18 14:07
[2018-07-04 04:06] LABS: Anti Cardiolipin Ab IgG <14 GPL (< = 14); Anti Cardiolipin Ab IgM <12 MPL (< = 12); Anti-Thrombin III Activity 60 % activity (80-120); B2 Glycoprotein IgA <9 SAU (<=20); B2 Glycoprotein IgG <9 SGU (<=20); B2 Glycoprotein IgM <9 SMU (<=20); Lupus Anticoagulant Weak Positive (Negative); Protein S Functional(Activity) 94 % (70-150)
== END 2018-06-30 14:07 | disposition home or self-care (01) | DRG 299 ==
LOC: ED 12:32 → 4W 16:23

== ENCOUNTER 2022-08-26 21:35 | Observation (INO) ==
[2022-08-26 23:53] LABS: Basophils # (auto) 0.08 K/uL (0-0.2); Basophils % (auto) 0.5 %; Eosinophils # (auto) 0.51 K/uL (0-0.50); Eosinophils % (auto) 3.4 %; Hematocrit (blood only) 43.5 % (42.0-52.0); Hemoglobin 15.8 g/dl (14.0-18.0); Immature Granulocytes # (auto) 0.04 K/uL (0.01-0.20); Immature Granulocytes % (auto) 0.3 %; Lymphocytes # (auto) 3.34 K/uL (1.2-3.4); Lymphocytes % (auto) 22.5 %; Mean Corpuscular Hemoglobin 32.5 pg (25.0-34.0); Mean Corpuscular Hgb Conc 36.3 g/dL (32.0-36.0); Mean Corpuscular Volume 89.5 fL (80.0-100.0); Mean Platelet Volume 10.2 fL (9.4-12.4); Monocytes # (auto) 0.76 K/uL (0.11-0.59); Monocytes % (auto) 5.1 %; Neutrophils # (auto) 10.11 K/uL (1.40-6.50); Neutrophils % (auto) 68.2 %; Platelet Count 246 K/uL (130-400); RDW Coefficient of Variation 12.2 % (11.5-14.5); RDW Standard Deviation 39.9 fL (36.4-46.3); Red Blood Count 4.86 M/uL (4.70-6.10); White Blood Count 14.84 K/ul (4.8-10.8)
[2022-08-27 00:01] LABS: Albumin Globulin Ratio 1.7 (0.9-2); Albumin Level 4.1 gm/dl (3.4-5.0); BUN Creatinine Ratio 22.7 (10-20); Bilirubin,Total 0.5 mg/dl (0.2-1.0); Calcium 9.5 mg/dl (8.6-10.3); Creatinine Clr Calc Pharmacy 117.7 ml/min; Est GFR (African American) 109.2 ml/min; Est GFR (Non-African American) 94.3 ml/min; Globulin 2.4 gm/dl (2.5-4.0); Potassium 4.2 mmol/L (3.5-5.1); Total Protein 6.5 gm/dl (6.0-8.3)
[2022-08-27] MEDS ORDERED: diphenhydrAMINE 50 MG/ML VIAL IV STA (01:28)
[2022-08-27] MEDS ORDERED: cefTRIAXone SODIUM 2,000 MG/70 ML BAG IV STA (01:28)
--- NOTE | 2022-08-27 02:00 | History & Physical Report ---
Date of Service August 27, 2022 Assessment & Plan (1) Cellulitis of left leg: Plan: 67yo male with bullous lesion of LLE, progressive over the last several hours. ?dermatitis ?bullous impetigo? Patient is afebrile, HD stable and non-toxic in appearance. No pain with palpation of the left foot. No clear evidence for rapid progression -Observation to medical -Vancomycin -Topical mupirocin -Monitor for progression (2) Depression with anxiety: Plan: Chronic. Stable -Continue escitalopram F/E/N - Heplock. Electrolytes WNL. Regular diet as tolerated Ppx - low risk for VTE Code - DNR/DNI per discussion with patient Dispo - Observation to medical History of Present Illness Chief Complaint: Left foot blisters Primary Care Provider: DO Dawit Rutledgelucrecia is a 67yo male with history of HTN, prior LLE VTE presenting with swelling and blisters of his left foot. Patient developed itching of the dorsum of his left foot and toes on 08/26/22 AM. He scratched the area extensively then covered it with Cortisone 10 cream, put on his socks and shoes and went about his day. Around 19:00 he took off his socks and shoes and noted that his sock was soaked with serous fluid and he had extensive fluid filled lesions on his left foot. He reports the foot and ankle feeling swollen and "fat" but he has minimal pain. He reports that new blisters have formed on the foot even since earlier this evening. He denies fever, chills, cough, chest pain, SOB. Denies bug bites to the foot, scratches or other known abrasions or trauma. No new socks/boots/detergents or personal care products were applied to the area. Patient reports he never walks around barefoot. He does report having two tick bites on his right leg several days ago. He removed the ticks and reports that they were engorged. He has not developed rash or bulls eye. In the ER he is afebrile, HD stable, NAD ER Course: Ceftriaxone Allergies Allergy/AdvReac Type Severity Reaction Status Date / Time lisinopril Allergy Unknown Verified 03/08/20 13:41 Home Medications Medication Instructions Recorded Confirmed Type cyclobenzaprine 10 mg tablet 10 mg PO DAILY PRN Muscle Spasm 06/29/18 03/08/20 History naproxen 500 mg tablet 500 mg PO BID 06/29/18 03/08/20 History aspirin 81 mg tablet,delayed 81 mg PO QAM 07/12/19 03/08/20 History release escitalopram oxalate 10 mg tablet 10 mg PO DAILY 07/16/19 03/08/20 History (Lexapro) rosuvastatin 10 mg tablet (Crestor) 10 mg PO DAILY 07/16/19 03/08/20 History mecobalamin (vitamin B12) 5,000 5,000 mcg PO DAILY 10/25/19 03/08/20 History mcg disintegrating tablet vitamin B complex 1 tab PO DAILY 10/25/19 03/08/20 History Past Med/Surg History Medical History Delusion Depression with anxiety HTN (hypertension) Multiple head injury Tobacco abuse Surgical History H/O vasectomy History of cataract surgery Hx of elbow surgery Hx of sinus surgery Hx of tonsillectomy Family History Father Diabetes Normal pressure hydrocephalus Other No significant family history Social History Smoking Status: Current every day smoker Tobacco Type: Cigarettes Hx Alcohol Use: Yes Alcohol type: beer Hx Substance Use: No Preferred Language: Zambian Communication Ability: Effective Motion Picture Director Required: No Beliefs That Will Affect Care: None Current Living Situation: Spouse Feels Safe at Home: Yes Assistive Devices: None Review of Systems Review of Systems: All systems reviewed & are unremarkable except as noted in HPI & below Physical Exam Physical Exam: General: patient resting comfortably, NAD, non-toxic in appearance, AA&O x 4 HEENT: NC/AT, PERRL, EOMI, anicteric sclera, conjunctiva without injection, external ear normal to inspection and nontender, nares patent, moist mucus membranes, dentition intact, no oropharyngeal lesions, neck supple, trachea midline, no LAD, no thyromegaly, no JVD Heart: +S1/S2, regular, no m/r/g Lungs: equal air entry bilaterally, no rales/rhonchi/wheezes Abd: +BS, soft, NT/ND, no masses/organomegaly/ascites Ext: warm, 2+ pulses in UE/LE bilaterally, no clubbing/cyanosis Neuro: nonfocal, patient AA&O x 4, speech intact, no facial droop, moving all extremities on command with equal strength 5/5 Left foot - large fluid filled blisters, bullous lesions covering the dorsal surface of toes. Serous drainage. Mild erythema of the foot. Mild swelling of left ankle. Full ROM Small area of eschar at right popliteal fossa and lateral leg from patient's recent tick removal. Minor erythema surrounding eschar, no bulls eye rash appearance. No lymphangitis. Results & Data Results & Data Vital Signs (Past 12 Hours) Vital Signs Temp Pulse Resp BP Pulse Ox O2 Del Method 08/26/22 21:41 36.2 C L 84 20 110/72 94 Room Air Laboratory Results Laboratory Results WBC 14.84 K/ul (4.8-10.8) H 08/26/22: RBC 4.86 M/uL (4.70-6.10) 08/26/22: Hgb 15.8 g/dl (14.0-18.0) 08/26/22: Hct 43.5 % (42.0-52.0) 08/26/22: MCV 89.5 fL (80.0-100.0) 08/26/22: MCH 32.5 pg (25.0-34.0) 08/26/22: MCHC 36.3 g/dL (32.0-36.0) H 08/26/22: RDW Std Deviation 39.9 fL (36.4-46.3) 08/26/22: RDW Coeff of Rosanne 12.2 % (11.5-14.5) 08/26/22: Plt Count 246 K/uL (130-400) 08/26/22: MPV 10.2 fL (9.4-12.4) 08/26/22: Immature Gran % (Auto) 0.3 % 08/26/22: Neut % (Auto) 68.2 % 08/26/22: Lymph % (Auto) 22.5 % 04/17/23 23:22 Barnes % (Auto) 5.1 % 08/26/22 23:22 Eos % (Auto) 3.4 % 08/26/22 23:22 Baso % (Auto) 0.5 % 08/26/22 23:22 Neut # (Auto) 10.11 K/uL (1.40-6.50) H 08/26/22 23:22 Lymph # (Auto) 3.34 K/uL (1.2-3.4) 08/26/22 23:22 Barnes # (Auto) 0.76 K/uL (0.11-0.59) H 08/26/22 23:22 Eos # (Auto) 0.51 K/uL (0-0.50) H 08/26/22 23:22 Baso # (Auto) 0.08 K/uL (0-0.2) 08/26/22 23: Immature Gran # (Auto) 0.04 K/uL (0.01-0.20) 08/26/22 23:22 Sodium 136 mmol/L (136-145) 08/26/22 23:22 Potassium 4.2 mmol/L (3.5-5.1) 08/26/22 23:22 Chloride 109 mmol/L (98-107) H 08/26/22 23:22 Carbon Dioxide 23 mmol/L (21-32) 08/26/22 23:22 Anion Gap 4 (3-11) 08/26/22 23:22 BUN 17 mg/dl (6-23) 08/26/22 23: Creatinine 0.75 mg/dl (0.6-1.4) 08/26/22 23:22 Est Cr Clr Drug Dosing 117.7 ml/min 08/26/22 23:22 Est GFR ( Amer) 109.2 ml/min 08/26/22 23:22 Est GFR (Non-Af Amer) 94.3 ml/min 08/26/22 23:22 BUN/Creatinine Ratio 22.7 (10-20) H 08/26/22 23:22 Glucose 120 mg/dl (70-99(Fasting)) H 08/26/22 23:22 Calcium 9.5 mg/dl (8.6-10.3) 08/26/22 23:22 Total Bilirubin 0.5 mg/dl (0.2-1.0) 08/26/22 23:22 AST 18 U/L (13-39) 08/26/22 23:22 ALT 30 U/L (7-52) 08/26/22 23:22 Alkaline Phosphatase 72 U/L (34-104) 08/26/22 23:22 Total Protein 6.5 gm/dl (6.0-8.3) 08/26/22 23:22 Albumin 4.1 gm/dl (3.4-5.0) 08/26/22 23:22 Globulin 2.4 gm/dl (2.5-4.0) L 08/26/22 23:22 Albumin/Globulin Ratio 1.7 (0.9-2) 08/26/22 23:22 SARS-CoV-2, RNA, NAAT NEGATIVE (NEGATIVE) 08/27/22 03:48 Diagnostic Findings LLE Venous Duplex performed - read PENDING Code Status & VTE Plan VTE Prophylaxis Plan VTE Prophylaxis will be ordered: Yes PG Care Time/CCT Total # of Minutes Spent Total Time Spent with Patient: Total time spent is greater than 50% in coordination of care (as documented) at patient's floor/unit and/or counseling patient: Coding Level of Care Code 65499 INT INP/OBS CARE 2/55MIN Diagnoses Cellulitis of left leg L03.116 Depression with anxiety F41.8
--- NOTE | 2022-08-27 02:08 | Emergency Department Note ---
History of Present Illness General Chief complaint: Skin Problem Stated complaint: LEFT FOOT HAS BUBBLES,BLISTERS Time Seen by Provider: 08/27/22 01:08 History of Present Illness This 67-year-old male presents to the ER for left lower foot pain and swelling and blistering. He states is quite itchy. Patient denies fever, chills, trauma to the area. Nothing new to the area. Home Medications Medication Instructions Recorded Confirmed Type cyclobenzaprine 10 mg tablet 10 mg PO DAILY PRN Muscle Spasm 06/29/18 03/08/20 History naproxen 500 mg tablet 500 mg PO BID 06/29/18 03/08/20 History aspirin 81 mg tablet,delayed 81 mg PO QAM 07/12/19 03/08/20 History release escitalopram oxalate 10 mg tablet 10 mg PO DAILY 07/16/19 03/08/20 History (Lexapro) rosuvastatin 10 mg tablet (Crestor) 10 mg PO DAILY 07/16/19 03/08/20 History mecobalamin (vitamin B12) 5,000 5,000 mcg PO DAILY 10/25/19 03/08/20 History mcg disintegrating tablet vitamin B complex 1 tab PO DAILY 10/25/19 03/08/20 History Allergies Allergy/AdvReac Type Severity Reaction Status Date / Time lisinopril Allergy Unknown Verified 03/08/20 13:41 Past Med/Surg History Medical History Delusion Depression with anxiety HTN (hypertension) Multiple head injury Tobacco abuse Surgical History H/O vasectomy History of cataract surgery Hx of elbow surgery Hx of sinus surgery Hx of tonsillectomy Family History Father Diabetes Normal pressure hydrocephalus Other No significant family history Social History Smoking Status: Current every day smoker Tobacco Type: Cigarettes Hx Alcohol Use: Yes Alcohol type: beer Hx Substance Use: No Preferred Language: Divehi Communication Ability: Effective Mail Handler Sorter Required: No Beliefs That Will Affect Care: None Current Living Situation: Spouse Feels Safe at Home: Yes Assistive Devices: None Review of Systems A total of 10 systems reviewed and were otherwise negative Physical Exam Vital Signs Vital Signs - 24 hr 08/26/22 21:41 Temperature 36.2 C L Temperature Source Temporal Artery Scan Pulse Rate 84 Respiratory Rate 20 Respiratory Effort / Characteristics Non-Labored Spontaneous Respiratory Depth Normal Blood Pressure 110/72 Blood Pressure Mean 84 Pulse Oximetry 94 Oxygen Delivery Method Room Air Sepsis Recent Fever Within 48 Hours No Sepsis New/Unexplained Change in Mental Status N/A Sepsis Action Taken by Nursing No Action Required VITALS: Vitals are noted on the nurse's note and reviewed by myself. Vital signs stable. GENERAL: Pleasant gentleman, in no acute distress, nondiaphoretic, well- developed well-nourished. SKIN: Left lower foot with blisters erythematous and edematous tracking up the calf, the rest of the skin was without rashes, erythema, edema, or bruising. There is no tenting of the skin. Capillary reflex less than 2 seconds. HEAD: Normocephalic atraumatic. EARS: External auditory canals clear, EYES: Pupils equal round and reactive to light and accommodation. Conjunctivae without injection, sclerae without icterus. Extraocular movements intact. NOSE: Patent, turbinates without inflammation or discharge. MOUTH: Mucous membranes moist. Pharynx without erythema or exudate. Uvula midline. Airway patent. Tongue does not deviate. NECK: Supple without nuchal rigidity. No lymphadenopathy. No thyromegaly. Cervical spine is nontender. No JVD. HEART: Regular rate and rhythm LUNGS: Clear to auscultation bilaterally without wheezes, rales or rhonchi. No retractions or accessory muscle use. ABDOMEN: Positive bowel sounds x 4. Normal tympanic percussion. Soft, nontender, without masses or organomegaly. Ashley sign negative. No guarding or rebound tenderness. No CVA tenderness MUSCULOSKELETAL: No muscle atrophy noted. Pupils +2 equal and present bilaterally. Left foot erythematous and edematous with blisters concerning for infection. NEURO: Patient was alert and oriented to person place and time. Normal sensation to light and sharp touch. No focal neurological deficits. Course Administered Medications Discontinued Medications Diphenhydramine HCl (Diphenhydramine 50 Mg/Ml Vial) 50 mg IV NOW STA Stop: 08/27/22 01:29 Last Admin: 08/27/22 02:05 Dose: 50 mg Documented By: EMB Ceftriaxone Sodium (Rocephin) 2,000 mg in 70 mls @ 140 mls/hr IV NOW STA Stop: 08/27/22 01:57 Last Infusion: 08/27/22 03:08 Dose: 0 mls/hr Documented By: Admin: 08/27/22 02:04 Dose: 140 mls/hr Documented By: SIDRA Medical Decision Making Medical Records Attestation: I reviewed the patient's medical records. Home Medications Current Medication List: was personally reviewed by me Laboratory Data Attestation: I reviewed the patient's lab results. 08/26/22 23:22 08/26/22 23:22 Lab Results 08/26/22 08/26/22 Range/Units 23:22 23:22 WBC 14.84 H (4.8-10.8) K/ul RBC 4.86 (4.70-6.10) M/uL Hgb 15.8 (14.0-18.0) g/dl Hct 43.5 (42.0-52.0) % MCV 89.5 (80.0-100.0) fL MCH 32.5 (25.0-34.0) pg MCHC 36.3 H (32.0-36.0) g/dL RDW Std Deviation 39.9 (36.4-46.3) fL RDW Coeff of Rosanne 12.2 (11.5-14.5) % Plt Count 246 (130-400) K/uL MPV 10.2 (9.4-12.4) fL Immature Gran % (Auto) 0.3 % Neut % (Auto) 68.2 % Lymph % (Auto) 22.5 % Creek % (Auto) 5.1 % Eos % (Auto) 3.4 % Baso % (Auto) 0.5 % Neut # (Auto) 10.11 H (1.40-6.50) K/uL Lymph # (Auto) 3.34 (1.2-3.4) K/uL Creek # (Auto) 0.76 H (0.11-0.59) K/uL Eos # (Auto) 0.51 H (0-0.50) K/uL Baso # (Auto) 0.08 (0-0.2) K/uL Immature Gran # (Auto) 0.04 (0.01-0.20) K/uL Sodium 136 (136-145) mmol/L Potassium 4.2 (3.5-5.1) mmol/L Chloride 109 H (98-107) mmol/L Carbon Dioxide 23 (21-32) mmol/L Anion Gap 4 (3-11) BUN 17 (6-23) mg/dl Creatinine 0.75 (0.6-1.4) mg/dl Est Cr Clr Drug Dosing 117.7 ml/min Est GFR ( Amer) 109.2 ml/min Est GFR (Non-Af Amer) 94.3 ml/min BUN/Creatinine Ratio 22.7 H (10-20) Glucose 120 H (70-99(Fasting)) mg/dl Calcium 9.5 (8.6-10.3) mg/dl Total Bilirubin 0.5 (0.2-1.0) mg/dl AST 18 (13-39) U/L ALT 30 (7-52) U/L Alkaline Phosphatase 72 (34-104) U/L Total Protein 6.5 (6.0-8.3) gm/dl Albumin 4.1 (3.4-5.0) gm/dl Globulin 2.4 L (2.5-4.0) gm/dl Albumin/Globulin Ratio 1.7 (0.9-2) Imaging Data Attestation: I personally reviewed and interpreted this imaging study as follows: MDM Narrative Prior records reviewed and summarized as above. Triage Nursing notes reviewed. Additional history obtained from nursing. The patient's history was concerning for swelling and redness of the skin. Differential diagnosis: Etiologies such as cellulitis, abscess, MRSA infection, DVT, necrotizing fasciitis, dermatitis, drug eruption, as well as others were entertained.. Physical examination: The physical examination was consistent with cellulitis ER treatment provided: Rocephin was ordered On reassessment the patient felt better. Diagnostics interpreted by me: The labs Independently Interpreted by myself revealed leukocytosis Imaging studies: pending at time of admission Consultation: A consultation was placed with the hospitalist. The case was discussed and diagnostics were reviewed. The patient was evaluated in the ER for further treatment. This appears to be isolated cellulitis. Patient was started on antibiotics and will be admitted to the medical team. Hospitalist was consulted and the case was discussed. By the evaluation outlined above emergent etiologies such as abscess, necrotizing fasciitis, DVT, as well as others were deemed relatively unlikely. The pt informed about the findings as listed above. All questions were answered and pleased with the treatment. The chart was completed utilizing [employer] Speech voice recognition software. Grammatical errors, random word insertions, pronoun errors, and incomplete sentences are an occassional consequence of this system due to software limitations, ambient noise, and hardware issues. Any formal questions or concerns about the content, text, or information contained within the body of this dictation should be directly addressed to the physician him assistant for clarification. Impression & Plan Cellulitis of left leg Discharge Plan Visit Data Chief Complaint: Skin Problem Stated Complaint: LEFT FOOT HAS BUBBLES,BLISTERS ED Provider: Red Berry. ED Midlevel Provider: Janay Newton Discharge Problem: Cellulitis of left leg Patient Disposition: Admitted As Inpatient Condition: Good Discharge Instructions Interventions: ED Discharge Assessment Last Done: 08/27/22 05:03
[2022-08-27] MEDS ORDERED: VANCOMYCIN HCL 1,000 MG in SODIUM CHLORIDE 0.9% 250 ML IV SCH (05:51)
[2022-08-27] MEDS ORDERED: DOXYCYCLINE HYCLATE 100 MG CAP PO STA (05:51)
[2022-08-27] MEDS ORDERED: VANCOMYCIN CONSULT ACTIVE PRN (05:51)
[2022-08-27] MEDS ORDERED: ACETAMINOPHEN 325 MG TAB PO PRN (05:51)
[2022-08-27] MEDS ORDERED: VANCOMYCIN HCL 2,000 MG in SODIUM CHLORIDE 0.9% 500 ML IV ONE (06:15)
--- NOTE | 2022-08-27 07:51 | Ultrasound Report ---
LEFT LOWER EXTREMITY VENOUS DOPPLER HISTORY: Acute pain and swelling of the left lower extremity . History of DVT within the left lower l eg. swelling, ? dvt COMPARISON STUDY: 06/29/2018 FINDINGS: There is normal compressibility, flow, and augmentation within the left lower extremity roxana p venous system. No occlusive deep venous thrombus identified. Linear fibrin stranding noted within t he popliteal vein. IMPRESSION: 1. No acute occlusive deep venous thrombus. 2. Minimal fibrin stranding from chronic DVT within the popliteal vein. ACT 112: Negative or not required by law. Electronically signed by: John Velazco M.D. 08/27/2022 7:50 AM
[2022-08-27 08:38] LABS: Lyme Ab IgG w/WB Rflx Negative (Negative)
[2022-08-27 08:39] LABS: Lyme Ab IgM w/WB Rflx Negative (Negative)
[2022-08-27] MEDS: MUPIROCIN 2% OINT 22 GM TUBE EXT SCH ×2 (08:40→13:55)
[2022-08-27] MEDS ORDERED: ESCITALOPRAM OXALATE 10 MG TAB PO SCH (09:00)
[2022-08-27] MEDS ORDERED: ENOXAPARIN INJ 40 MG/0.4 ML SYR SQ SCH (09:00)
[2022-08-27] MEDS ORDERED: ROSUVASTATIN CALCIUM 10 MG TAB PO SCH (09:00)
[2022-08-27] MEDS ORDERED: ASPIRIN 81 MG ECTAB PO SCH (09:00)
[2022-08-27] MEDS ORDERED: NAPROXEN 250 MG TAB PO SCH (09:00)
--- NOTE | 2022-08-27 10:59 | Pharmacy Report ---
Pharmacy PK ABX Note - Date of Service August 27, 2022 - Assessment and Plan Assessment 67 year old M started on vancomycin for possible cellulitis of left foot. PMHx significant for HTN, LLE VTE. Had noted swelling/blisters on left foot. Possible tick bites to right leg several days ago. A dose of doxycycyline given in ER given prophylactically. Blood cultures currently pending. Doppler of area negative. Day #1 of antimicrobial therapy. Plan Vancomycin * Patient given loading dose of vancomycin 2000 mg x 1 this AM * Will start maintenance dose of vancomycin 1250 mg iv q 12 hrs - this dosing is estimated to produce a trough level of ~15 mcg/ml and AUC/ABIGAIL of 400-600 and may be associated with an ~11% risk of nephrotoxicity * Will consider ordering random level if plan is to continue with vancomycin >48 hours Pharmacy will continue to follow and will adjust dose/frequency as necessary. Thank you. Pharmacy has transitioned to AUC monitoring for vancomycin. AUC/ABIGAIL is the preferred PK/PD target and is associated with decreased risk of nephrotoxicity compared to traditional trough targets.
[2022-08-27] MEDS ORDERED: VANCOMYCIN HCL 1,250 MG in SODIUM CHLORIDE 0.9% 250 ML IV SCH (14:00)
--- NOTE | 2022-08-27 18:00 | Discharge Summary ---
Date of Service August 27, 2022 Admission HPI Per Admitting Provider Dawit Morfin is a 67yo male with history of HTN, prior LLE VTE presenting with swelling and blisters of his left foot. Patient developed itching of the dorsum of his left foot and toes on 08/26/22 AM. He scratched the area extensively then covered it with Cortisone 10 cream, put on his socks and shoes and went about his day. Around 19:00 he took off his socks and shoes and noted that his sock was soaked with serous fluid and he had extensive fluid filled lesions on his left foot. He reports the foot and ankle feeling swollen and "fat" but he has minimal pain. He reports that new blisters have formed on the foot even since earlier this evening. He denies fever, chills, cough, chest pain, SOB. Denies bug bites to the foot, scratches or other known abrasions or trauma. No new socks/boots/detergents or personal care products were applied to the area. Patient reports he never walks around barefoot. He does report having two tick bites on his right leg several days ago. He removed the ticks and reports that they were engorged. He has not developed rash or bulls eye. In the ER he is afebrile, HD stable, NAD ER Course: Ceftriaxone Principal Diagnosis left foot cellulitis Discharge Exam receding erythema as indicated by marked line on foot, large bullae deflated at bedside in sterile fashion and foot dressed no vascular streaking still edema Discharge Data Allergies Allergy/AdvReac Type Severity Reaction Status Date / Time lisinopril Allergy Unknown Verified 03/08/20 13:41 Ordered Studies 08/27/22 01:28 US venous doppler LE Stat Hospital Course (1) Cellulitis of left leyo male with bullous lesion of LLE, progressive over the last several hours. will discharge on augmentin, wound care instruction and close outpt follow up, pt assures me he will see pcp (2) Depression with anxiety: Chronic. Stable -Continue escitalopram Total Time Total Time Spent Total Time Spent (In Minutes): greater than 30 minutes were required to see and discharge pt Discharge Plan Discharge Items Patient Disposition: Home - Self-Care Reason For Visit: LLE CELLULITIS, BULLAE Discharge Diagnosis: left foot cellulitis Condition on Discharge: Good Activity: Per Instructions section Activity Comment: try to keep foot elevated until swelling resolves Non-emergency contact: Primary Care Provider Call non-emergency contact if: your symptoms worsen Follow-up/Referrals: Steve Alan DO [Primary Care Provider] - Diet: Regular Addtl Attending Provider Instructions: please take your antibioitcs starting tonight wash you foot/wounds daily and try completely, apply antibiotic ointment to open areas keep clean and dry, cover if you need to wear socks and shoes see your family doctor before the weekend always return i f worse Pending Studies at Discharge: Yes (blood cultures will be analyzed for infection ) Stand-Alone Forms: My [facility] [email or web address], Smoking Cessation Medications and DC Order Prescriptions: New amoxicillin-pot clavulanate 875-125 mg tablet 1 tab PO BID Qty: 14 0RF Continued vitamin B complex Tablet 1 tab PO DAILY Rx Instructions: 1000MCG DAILY mecobalamin (vitamin B12) 5,000 mcg tablet,disintegrating 5,000 mcg PO DAILY aspirin 81 mg tablet,delayed release (DR/EC) 81 mg PO QAM escitalopram oxalate [Lexapro] 10 mg tablet 10 mg PO DAILY rosuvastatin [Crestor] 10 mg tablet 10 mg PO DAILY cyclobenzaprine 10 mg tablet 10 mg PO DAILY PRN (Reason: Muscle Spasm) naproxen 500 mg Tablet 500 mg PO BID Discharge Orders: Discharge Order (Routine); Ordered 08/27/22 Ordered By: Derrell Tillman Admission Data Admit Date/Time: 08/27/22 01:59 Attending Provider: Zari Sexton Admit Provider: Zari Sexton Primary Care Provider: Steve Alan Coding Level of Care Code INP/OBS EV SAME DAY LV 3,85MIN Diagnoses Cellulitis of left leg L03.116 Depression with anxiety F41.8
== END 2022-08-27 19:00 | disposition home or self-care (01) ==
LOC: ED 21:35 → 3N 21:35